=== PATIENT | male | born 1930 | race Caucasian/White ===

== ENCOUNTER → 2017-02-13 | Outpatient (CLI) | payer MEDICARE ==
[~2017-02-13] MED LIST: LOPRESSOR50 MG PO; XARELTO20 MG PO
== END ==
LOC: RAD 02-06 08:00
DX: K59.00 Constipation, unspecified (principal)
CPT/HCPCS: 74270

== ENCOUNTER → 2021-03-09 | Outpatient (CLI) | payer MEDICARE ==
[~2021-03-09] MED LIST changes: +ASPIRIN EC81 MG PO; +ATORVASTATIN CA20 MG PO; +DOCUSATE SENNA PO; +ELIQUIS2.5 MG PO; +EYE MULTIVITAM1 EACH PO; +FERROUS SULFAT325 MG PO; +HYDROCODON-ACE1 EAC6 PO; +ICAPS AREDS SO1 EACH PO; +LEVAQUIN500 MG PO; +LIPITOR40 MG PO; +LITHIUM CARBON150 MG PO; +LITHIUM CARBON300 M3 PO; +LOW DOSE ASPIRI81 MG PO; +PLAVIX75 MG PO; +PROSCAR 5 MG TAB5 MG PO; +SYNTHROID150 MCG PO; +TIROSINT125 MCG PO; +TYLENOL WITH C1 EACH PO; +VITAMIN C500 M4 PO; +VOLTAREN100 GM TP
[2021-03-09 10:33] LABS: HEMOGLOBIN 11.6 gm/dl (14.0-17.5); RED BLOOD COUNT 3.98 M/UL (4.20-5.50); WHITE BLOOD COUNT 8.6 K/UL (4.5-11.0)
[2021-03-09 11:13] LABS: BUN/CREATININE RATIO 16 (0-10)
== END ==
LOC: OPSV2 09:00 → EDSTATUS 09:00 → OPSV2 09:07
PROVIDERS: Orthopaedic Surgery
DX: Z01.818 Encounter for other preprocedural examination (principal); M17.12 Unilateral primary osteoarthritis, left knee
CPT/HCPCS: 36415; 80048; 81001; 85025; 87081; 93005

== ENCOUNTER 2021-03-21 06:00 | Inpatient (IN) | payer MEDICARE ==
[~2021-03-21] VITALS: Ht 180.3 cm; Wt 101.6 kg
[~2021-03-21 06:00] MED LIST changes: -ELIQUIS2.5 MG PO; -HYDROCODON-ACE1 EAC6 PO
[2021-03-21] MEDS ORDERED: HYDROCODON-ACE1 EAC6 PO (08:11)
[2021-03-21] MEDS ORDERED: ELIQUIS2.5 MG PO (08:11)
[2021-03-22 03:34] LABS: HEMOGLOBIN 8.8 gm/dl (14.0-17.5); RED BLOOD COUNT 3.03 M/UL (4.20-5.50); WHITE BLOOD COUNT 14.2 K/UL (4.5-11.0)
[2021-03-23 03:22] LABS: HEMOGLOBIN 7.3 gm/dl (14.0-17.5)
[2021-03-23 03:23] LABS: RED BLOOD COUNT 2.46 M/UL (4.20-5.50); WHITE BLOOD COUNT 10.5 K/UL (4.5-11.0)
[2021-03-23 03:45] LABS: BUN/CREATININE RATIO 19 (0-10)
[2021-03-23 13:42] LABS: HEMOGLOBIN 7.6 gm/dl (14.0-17.5)
[2021-03-23] MEDS ORDERED: ELIQUIS2.5 MG PO (14:33)
--- NOTE | 2021-03-23 23:35 | NUR ---
AT 2305 ON 03/23/21 WITH NEUROVASCULAR CHECK, BLEEDING FROM SITE HAD STOPPED, THEREFORE I CHANGED 4X4 POST-OP GAUZE AND BAIRON WRAPS. WCTM
--- NOTE | 2021-03-24 03:30 | NUR ---
STEWART CATHETER WAS PLACED AT 0215, 450 ML WAS DRAINED IMMEDIATELY. AT 0300, 550 MORE ML WAS DRAINED. WCTM AND DRAIN Q30-45 MINUTES UNTIL NO LONGER CONTINUALLY DRAINING.
[2021-03-24 03:42] LABS: WHITE BLOOD COUNT 10.8 K/UL (4.5-11.0)
[2021-03-24 03:50] LABS: RED BLOOD COUNT 2.15 M/UL (4.20-5.50)
[2021-03-24 03:51] LABS: HEMOGLOBIN 6.4 gm/dl (14.0-17.5)
[2021-03-24 04:14] LABS: BUN/CREATININE RATIO 18 (0-10)
[2021-03-24 12:08] LABS: HEMOGLOBIN 8.2 gm/dl (14.0-17.5)
--- NOTE | 2021-03-24 16:03 | NUR ---
NOTIFIED DR. ANTONIO OF PATIENT'S BLOOD IN STEWART CATHETER AND SHORTNESS OF BREATH WITH ACTIVITY. NO NEW ORDERS AT THIS TIME.
[2021-03-25 08:01] LABS: HEMOGLOBIN 7.3 gm/dl (14.0-17.5); RED BLOOD COUNT 2.48 M/UL (4.20-5.50); WHITE BLOOD COUNT 11.2 K/UL (4.5-11.0)
[2021-03-25 14:35] LABS: HEMOGLOBIN 8.8 gm/dl (14.0-17.5)
[2021-03-26 04:57] LABS: HEMOGLOBIN 8.3 gm/dl (14.0-17.5); WHITE BLOOD COUNT 11.2 K/UL (4.5-11.0)
[2021-03-26 05:03] LABS: RED BLOOD COUNT 2.8 M/UL (4.20-5.50)
[2021-03-26 05:17] LABS: BUN/CREATININE RATIO 15 (0-10)
[2021-03-26 15:03] LABS: HEMOGLOBIN 8.7 gm/dl (14.0-17.5)
[2021-03-27 04:29] LABS: HEMOGLOBIN 8.1 gm/dl (14.0-17.5); RED BLOOD COUNT 2.77 M/UL (4.20-5.50); WHITE BLOOD COUNT 10.8 K/UL (4.5-11.0)
[2021-03-27 04:52] LABS: BUN/CREATININE RATIO 16 (0-10)
--- NOTE | 2021-03-27 15:35 | NUR ---
1535:PER HERMINIA BARBA NP REQUEST. RN NOTIFIED AFSANEH RUBIN AND PATIENTS DAUGHTER THAT PATIENT WILL REQUIRE A LEFT LEG VENOUS DUPLEX IN 6 WEEKS PER REPORT RECOMMENDATION.
== END 2021-03-27 16:54 | DRG 470 ==
LOC: ZOBSOF 06:00 → M/S 17:11
PROVIDERS: Internal Medicine; ADMIT Orthopaedic Surgery
PROC: 0SRD0J9 Replacement of Left Knee Joint with Synthetic Substitute, Cemented, Open Approach (ICD-10-PCS; principal; 2021-03-21 08:15)
PROC: 30233N1 Transfusion of Nonautologous Red Blood Cells into Peripheral Vein, Percutaneous Approach (ICD-10-PCS; 2021-03-24)
DX: M17.12 Unilateral primary osteoarthritis, left knee (principal); D62 Acute posthemorrhagic anemia; L76.22 Postprocedural hemorrhage of skin and subcutaneous tissue following other procedure; F31.9 Bipolar disorder, unspecified; Z20.822 Contact with and (suspected) exposure to COVID-19; R33.9 Retention of urine, unspecified; I11.0 Hypertensive heart disease with heart failure; E03.9 Hypothyroidism, unspecified; E78.5 Hyperlipidemia, unspecified; E87.6 Hypokalemia; I95.2 Hypotension due to drugs; T42.75XA Adverse effect of unspecified antiepileptic and sedative-hypnotic drugs, initial encounter; D50.9 Iron deficiency anemia, unspecified; D72.828 Other elevated white blood cell count; Z96.651 Presence of right artificial knee joint; I50.9 Heart failure, unspecified; Y83.8 Other surgical procedures as the cause of abnormal reaction of the patient, or of later complication, without mention of misadventure at the time of the procedure; R53.81 Other malaise; Z86.73 Personal history of transient ischemic attack (TIA), and cerebral infarction without residual deficits; Z85.850 Personal history of malignant neoplasm of thyroid; Z85.46 Personal history of malignant neoplasm of prostate; Z79.01 Long term (current) use of anticoagulants; Z79.82 Long term (current) use of aspirin; Z86.711 Personal history of pulmonary embolism; Z90.49 Acquired absence of other specified parts of digestive tract; Z83.3 Family history of diabetes mellitus; Z82.3 Family history of stroke; Z87.891 Personal history of nicotine dependence
CPT/HCPCS: 36415; 36430; 71045; 73560; 80048; 84132; 85014; 85018; 85027; 86850; 86900; 86901; 86920; 93971; 97110; 97110-GP-CQ; 97116-GP-CQ; 97162; 97166; 97530; 97530-GP-CQ; 97535; C1776; J0171; J0690; J1100; J1885; J2370; J2704; J2795; J3370; J7030; J7120; P9016